=== PATIENT | female | born 1985 | race Caucasian/White ===

== ENCOUNTER 2019-02-01 03:32 | Inpatient (IN) | payer MEDICAID, OTHER ==
[2019-02-01] MEDS ORDERED: fentaNYL 100 MCG/2 ML INJ IV PRN (06:55)
[2019-02-01] MEDS ORDERED: TERBUTALINE 1 MG/1 ML INJ SUB-Q PRN (06:55)
[2019-02-01] MEDS ORDERED: ePHEDrine SULFATE 50 MG/1 ML INJ IV PRN (06:55)
[2019-02-01] MEDS ORDERED: LIDOCAINE (2%) 20 MG/1 ML VIAL 20 ML MDV INFILTRATI ONE (06:55)
[2019-02-01] MEDS ORDERED: ONDANSETRON 4 MG/2 ML INJ IV PRN (06:55)
[2019-02-01] MEDS ORDERED: OXYTOCIN 20 UNIT/1000ML DRIP 20 UNITS/1,000 ML BAG IV SCH (07:00)
[2019-02-01] MEDS ORDERED: LACTATED RINGERS 1,000 ML IV SCH (07:00)
--- NOTE | 2019-02-01 07:14 | History and Physical Report ---
History of Present Illness Date of examination: 02/01/19 Date of admission: 02/01/2019 Chief complaint: Contractions History of present illness: 33 year old presents to L&D with contractions since last night. Patient denies leaking of water or vaginal bleeding. She states she was seen in the office yesterday and had her membranes stripped. Patient has received care at [facility] and records are available. LMP 04/14/18. EDC 02/01/19 (based on US done at 8 weeks, 1 day gestation). History of 2 previous vaginal births (2005 and 2014). significant for the following: Obesity (normal TSH and hemoglobin A1C and 1 hour sugar test), UTI (treated and JASON negative), vitamin D deficiency (supplemented with vitamin D), anemia (supplemented with iron), Libyan speaking patient. labs are as follows: A+, antibody screen negative, rubella immune, pap smear negative, hepatitis B surface antigen negative, HIV negative, RPR nonreactive, hemoglobin electrophoresis normal, gonorrhea negative, chlamydia negative, quad screen negative, 1 hour sugar test 127, GBS negative. Past History Past Medical History: other (obesity (BMI 40.4 on initial visit), left ovarian cyst in 2015) Past Surgical History: no surgical history SUPPLY MANAGER History: denies: abnormal PAP smear, chlamydia, gonorrhea, hepatitis B, hepatitis C, herpes, HIV, syphilis, trichomonas Family/Genetic History: hypertension, other (thyroid disease) Social history: single, lives with family, full code. denies: smoking, alcohol abuse, prescription drug abuse, IV drug use - Obstetrical History Expected Date of Delivery: 02/01/19 Actual Gestation: 40 Week(s) 0 Day(s) : 3 Para: 2 Hx # Term Pregnancies: 2 Number of Pregnancies: 0 Spontaneous Abortions: 0 Induced : 0 Number of Living Children: 2 Medications and Allergies Allergies Allergy/AdvReac Type Severity Reaction Status Date / Time No Known Allergies Allergy Unverified 07/04/14 00:57 Home Medications Medication Instructions Recorded Confirmed Last Taken Type Butalb/Acetamin/Caff 50-325-40 1 tab PO Q6HR PRN #10 tab 09/08/15 Unknown Rx [Fioricet] Ondansetron [Zofran Odt] 4 mg PO Q6H #7 tab.rapdis 09/08/15 Unknown Rx Active Meds: Active Medications Ephedrine Sulfate (Ephedrine Sulfate) 10 mg IV Q2M PRN PRN Reason: Hypotension Fentanyl (Sublimaze) 100 mcg IV Q2H PRN PRN Reason: Labor Pain Oxytocin/Sodium Chloride (Pitocin/Ns 20 Unit/1000ml Drip) 20 units in 1,000 mls @ 125 mls/hr IV DIRECT MILLA Lactated Ringer's (Lactated Ringers) 1,000 mls @ 125 mls/hr IV DIRECT MILLA Lidocaine (Xylocaine 2%) 20 ml INFILTRATI ONCE ONE Stop: 02/01/19 06:56 Ondansetron HCl (Zofran) 4 mg IV Q8H PRN PRN Reason: Nausea And Vomiting Terbutaline Sulfate (Brethine) 0.25 mg SUB-Q ONCE PRN PRN Reason: Hyperstimulation/Hypertonicity Review of Systems All systems: negative (contractions) - Vital Signs Vital signs: Vital Signs Pulse BP 84 102/55 02/01/19 04:30 02/01/19 04:30 Temp Pulse Resp BP Pulse Ox 98.1 F 71 18 110/61 02/01/19 04:31 02/01/19 06:25 02/01/19 04:31 02/01/19 06:25 - Physical Exam Cardiovascular: Regular rate, Normal S1, Normal S2 Lungs: Positive: Clear to auscultation Abdomen: Positive: normal appearance, soft. Negative: distention, tenderness, guarding, rigidity Genitourinary (Female): Positive: normal external genitalia, normal perenium. Negative: perineal/vulvar lesions (no lesions noted on careful exam with bright light upon admission) Vagina: Positive: normal moisture Uterus: Positive: enlarged. Negative: tender Anus/Rectum: Positive: normal perianal skin Extremities: Positive: normal. Negative: tenderness, edema - Obstetrical FHR: category 1 Uterine Contraction Monitor Mode: External Cervical Dilatation: 5 Cervical Effacement Percentage: 50 station: -3 Uterine Contraction Pattern: Irregular Uterine Contraction Intensity: Moderate Results Result Diagrams: 02/01/19 07:42 All other labs normal. Assessment and Plan A: at 40 weeks gestation. Labor. GBS negative. Category 1 heart rate tracing. Libyan speaking patient. P: Admit. Electronic monitoring.
[2019-02-01 08:30] LABS: Hematocrit 33.9 % (30.3-42.9); Hemoglobin 11.3 gm/dl (10.1-14.3); Mean Corpuscular HGB Conc 33 % (30-34); Mean Corpuscular Volume 83 fl (79-97); Platelet Count 238 K/mm3 (140-440); Red Blood Count 4.08 M/mm3 (3.65-5.03); Red Cell Distribution Width 15.3 % (13.2-15.2)
--- NOTE | 2019-02-01 14:27 | Event Note ---
Date: 02/01/19 SVE /3. Patient up to walk. Category 1 heart rate tracing.
--- NOTE | 2019-02-01 15:47 | Event Note ---
Date: 02/01/19 Chavo augmenation of labor orders put in. Will also get US for EFW.
[2019-02-01] MEDS ORDERED: OXYTOCIN DRIP 30 UNITS/500 ML BAG IV SCH (16:00)
--- NOTE | 2019-02-01 17:15 | Ultrasound Report ---
ULTRASOUND OBSTETRIC INDICATION: Estimate weight. Clinical Gestational Age (GA): 40 weeks TECHNIQUE: Transabdominal. COMPARISON: None available. FINDINGS: There is a single intrauterine . Biparietal Diameter = 9.0 cm = 36 weeks, 4 day(s). Head Circumference = 34.3 cm = 39 weeks, 5 day(s). Abdominal Circumference = 35.1 cm = 39 weeks, 0 day(s). Femur Length = 7.7 cm = 39 weeks, 1 day(s). Average Ultrasound Age (AUA) = 38 weeks, 4 day(s). Heart Rate: 138 beats per minute. Estimated Weight in grams (if calculated): 3601 Position: cephalic. Cervix: closed. Placenta: anterior and free of the os. Amniotic Fluid Volume: normal Amniotic Fluid Index (AYANA) in cm (if calculated): 12.3. Maternal Adnexa: No significant abnormality. IMPRESSION: 1. Single, living intrauterine with estimated sonographic age of 38 weeks, 4 day(s). 2. No significant sonographic abnormality. Signer Name: Manav Bailey MD Signed: 02/01/2019 5:11 PM Workstation Name: [id number]
--- NOTE | 2019-02-01 20:03 | Event Note ---
Date: 02/01/19 Patient agreed to augmentation of labor with Pitocin, so labor is now being augmented with Pitocin. Pitocin at 2 milliunits per minute. SVE 6/70/-3. Category 1 heart rate tracing. VSS.
--- NOTE | 2019-02-01 21:05 | Event Note ---
Date: 02/01/19 Patient reports her water broke at 20:55. Moderate amount of clear fluid noted on chux pad.
--- NOTE | 2019-02-01 21:21 | Event Note ---
Date: 02/01/19 Patient reports pressure. SVE /-1/bulging forebag.
[2019-02-01] MEDS ORDERED: OXYTOCIN 10 UNIT/1 ML INJ IM ONE (23:15)
[2019-02-01] MEDS ORDERED: OXYTOCIN 10 UNIT/1 ML INJ ONE (23:15)
[2019-02-01] MEDS ORDERED: MAGNESIUM HYDROXIDE (MOM) ORAL LIQD UDC PO PRN (23:40)
[2019-02-01] MEDS ORDERED: LANOLIN/ZINC/DIMETHICONE (LANSINOH) 7 GM TP PRN (23:40)
[2019-02-01] MEDS ORDERED: HYDROcodone/ACETAMINOPHEN 5-325 MG TAB PO PRN (23:40)
[2019-02-01] MEDS ORDERED: WITCH HAZEL/ GLYCERIN PAD TP PRN (23:40)
--- NOTE | 2019-02-02 00:33 | Procedure Note ---
OB Delivery Note - Delivery Date of Delivery: 02/01/19 Surgeon: RICH MORTON Estimated blood loss: other (250 cc) - Vaginal Delivery presentation: vertex Delivery position: OA Intrapartum events: meconium Delivery induction: none Delivery augmentation: pitocin Delivery monitor: external FHT, external uterine, internal FHT Route of delivery: Delivery placenta: spontaneous Delivery cord: 3 umbilical vessels Episiotomy: none Delivery laceration: none Anesthesia: none Delivery comments: Spontaneous vaginal delivery at 23:07 of liveborn female infant weighing 3318 grams over intact perineum with apgars of 8/9. Thin meconium amniotic fluid noted with SROM just prior to . NICU team called to attend delivery due to meconium stained amniotic fluid. 3 vessel cord double clamped and cut after of baby and baby was taken to radiant warmer to be suctioned by NICU team. Spontaneous cry and respirations. Spontaneous delivery of intact placenta and membranes. EBL 250 cc. Fundus firm and midline. Pitocin to IV fluids after delivery of placenta. No lacerations noted; vaginal sweep negative. Sponge count correct. Mother and baby stable.
[2019-02-02] MEDS: IBUPROFEN 600 MG TAB PO SCH ×4 (06:32→17:08)
[2019-02-02] MEDS: FERROUS SULFATE 325 MG TAB PO SCH (10:13)
[2019-02-02] MEDS: DOCUSATE SODIUM 100 MG CAP PO SCH (10:13)
--- NOTE | 2019-02-02 12:03 | Progress Note ---
Assessment and Plan - Patient Problems (1) Status post normal vaginal delivery Current Visit: Yes Status: Acute Plan to address problem: PPD 1 - stable Continue routine orders Anticipate discharge in 24 hours Subjective - Subjective Date of service: 02/02/19 Principal diagnosis: PPD #1; s/p Interval history: see H&P, Event Notes and OB Delivery Procedure Note Patient reports: appetite normal, voiding normally, pain well controlled, ambulating normally, no dizzy ambulation : doing well, other (breast and bottle feeding) Objective - Vital Signs Latest vital signs: Vital Signs Temp Pulse Resp BP Pulse Ox 02/02/19 08:40 98.1 F 75 18 103/49 99 02/02/19 06:32 18 02/02/19 06:25 95/41 02/02/19 03:38 98.6 F 72 18 100/40 96 02/02/19 01:04 18 02/02/19 00:47 71 106/55 02/02/19 00:32 67 105/52 02/02/19 00:17 69 111/54 02/02/19 00:04 18 02/02/19 00:03 64 113/53 02/01/19 23:20 100 H 126/52 02/01/19 19:57 74 107/55 02/01/19 19:15 98.6 F 18 02/01/19 16:59 81 98 02/01/19 16:54 91 H 99 02/01/19 13:42 94 H 108/54 02/01/19 13:38 87 100 02/01/19 12:38 63 102/59 Intake and Output 02/01/19 02/02/19 02/02/19 23:59 07:59 15:59 Intake Total 11.433 240 Output Total 350 Balance 11.433 -110 Intake: IV 11.433 PITOCin/NS 30 UNIT/500ML 11.433 30 units In 500 ml @ Per Protocol IV TITR MILLA Rx#: [id number] Oral 240 Output: Urine 350 Void 350 Other: Total, Intake Amount 240 Total, Output Amount 350 # Voids Void 1 Estimated Blood Loss 250 - Exam Abdomen: Present: normal appearance, soft Vulva: both: normal Uterus: Present: normal, firm, fundal height at umbilicus Extremities: Present: normal Comments: small lochia
[2019-02-02 12:28] LABS: Hematocrit 31.6 % (30.3-42.9); Hemoglobin 10.5 gm/dl (10.1-14.3)
[2019-02-03] MEDS: IBUPROFEN 600 MG TAB PO SCH ×3 (06:12→20:05)
[2019-02-03] MEDS: DOCUSATE SODIUM 100 MG CAP PO SCH (09:44)
[2019-02-03] MEDS: FERROUS SULFATE 325 MG TAB PO SCH (09:44)
--- NOTE | 2019-02-03 10:08 | Progress Note ---
Assessment and Plan - Patient Problems (1) Status post normal vaginal delivery Current Visit: Yes Status: Acute Plan to address problem: Continue routine PP orders Anticipate d/c home later today or tomorrow morning F/U in office in 6 wks for routine PP visit or prn (2) Anemia Current Visit: Yes Status: Acute Qualifiers: Anemia type: other cause Other causes of anemia: acute posthemorrhagic Qualified Code(s): D62 - Acute posthemorrhagic anemia Plan to address problem: Asymptomatic Continue daily oral iron supplementation Iron rich diet Subjective - Subjective Date of service: 02/03/19 Principal diagnosis: PPD #1; s/p Interval history: See admission H & P; OB delivery summary and PP progress notes Patient reports: appetite normal, voiding normally, pain well controlled, flatus, ambulating normally, no bowel movement : doing well, bottle feeding (and ) Objective - Vital Signs Latest vital signs: Vital Signs Temp Pulse Resp BP BP Pulse Ox 02/03/19 07:28 97.9 F 59 L 18 106/50 02/03/19 00:00 98.7 F 69 16 114/78 02/02/19 16:11 98.6 F 70 18 98/50 98 Intake and Output 02/02/19 02/03/19 02/03/19 23:59 07:59 15:59 Intake Total 1620 780 Balance 1620 780 Intake: Oral 600 480 Intake, Free Water 1020 300 Other: Total, Intake Amount 600 480 # Voids Void 1 1 - Exam Breasts: Present: normal Cardiovascular: Present: Regular rate Lungs: Present: Normal air movement Abdomen: Present: soft Uterus: Present: firm, fundal height below umbilicus (U-2) Extremities: Present: normal Deep Tendon Reflex Grade: Normal +2
--- NOTE | 2019-02-03 10:12 | Discharge Summary ---
Providers - Providers Date of Admission: 02/01/19 08:46 Date of discharge: 02/04/19 (0900) Attending physician: PATRICE GROVES MD Primary care physician: PATRICE GROVES MD Hospitalization Reason for admission: active labor, IUP at term Delivery: Episiotomy: none Laceration: none Other procedures: none complications: none Discharge diagnosis: other (S/P ; Anemia) [place] baby: female Hospital course: See admission H & P; OB delivery summary and PP progress notes Condition at discharge: Good Disposition: DC-01 TO HOME OR SELFCARE - Discharge Diagnoses (1) Status post normal vaginal delivery Status: Acute (2) Anemia Status: Acute Qualifiers: Anemia type: other cause Other causes of anemia: acute posthemorrhagic Qualified Code(s): D62 - Acute posthemorrhagic anemia Plan - Discharge Medications Prescriptions: Ferrous Sulfate [Feosol 325 MG tab] 325 mg PO QDAY #30 tablet - Provider Discharge Summary Activity: routine, no sex for 6 weeks, no heavy lifting 4 weeks, no strenuous exercise Diet: routine Instructions: routine Additional instructions: [] Smoking cessation referral if applicable(refer to patient education folder f or contact #) [] Refer to [facility] Booklet Call your doctor immediately for: * Fever > 100.5 * Heavy vaginal bleeding ( >1 pad per hour) * Severe persistent headache * Shortness of breath * Reddened, hot, painful area to leg or breast * Drainage or odor from incision. * Continue oral daily iron supplementation as directed - Follow up plan Follow up: PATRICE GROVES MD [Primary Care Provider] - 6 Weeks
[2019-02-03 17:45] VITALS: BP 117/55
== END 2019-02-03 20:40 | disposition home or self-care (01) | DRG 806 ==
LOC: TRG 03:32 → LD 08:46 → OB 02-02 02:49
PROVIDERS: ADMIT Obstetrics & Gynecology; ATTEND Obstetrics & Gynecology
PROC: 10E0XZZ Delivery of Products of Conception, External Approach (ICD-10-PCS; principal; 2019-02-02)
DX: O77.0 Labor and delivery complicated by meconium in amniotic fluid (principal); D62 Acute posthemorrhagic anemia; Z37.0 Single live birth; O99.214 Obesity complicating childbirth; Z3A.40 40 weeks gestation of pregnancy; O90.81 Anemia of the puerperium
CPT/HCPCS: 36415; 76816; 85014; 85018; 85027; 86592; 86850; 86900; 86901; G0378; J2590; J7120